=== PATIENT | female | born 1990 | race Caucasian/White ===

== ENCOUNTER 2018-01-11 07:30 | Outpatient (RCR) | payer OTHER, SELFPAY ==
--- NOTE | 2017-12-27 15:56 | PT.OTN ---
Current Diagnoses Unspecified rotator cuff tear or rupture of unspecified shoulder, not specified as traumatic (12/28/17) Transition note: On December 27, 2017 our therapy services consisting of Speech, Occupational, and Physical Therapy transitioned from the [employer] electronic documentation system to a new [employer] electronic documentation system.?? All documentation prior to December 27 can be found under [employer] saved data. From December 27 forward all medical record documentation will be in [employer] 6.1.
--- NOTE | 2017-12-28 08:34 | PT.OTN ---
Current Diagnoses Unspecified rotator cuff tear or rupture of unspecified shoulder, not specified as traumatic (12/28/17) Physical Therapy Treatment Note PT-OP-A Visit Information Start: 12/28/17 08:11 Freq: Status: Active Protocol: Activity Type Activity Date Activity User E-Sign Co-Sign Detail Recorded Client Recorded Date Recorded By Document 12/28/17 08:13 EA [id number] 12/28/17 08:31 EA 12/28/17 08:13 Out-Patient Physical Therapy Visit Information [Visit Information] -Visit Type Treatment Note -Visit Note POC -Total Visit Minutes 57 PT-OP-C Subjective Start: 12/28/17 08:11 Freq: Status: Active Protocol: Activity Type Activity Date Activity User E-Sign Co-Sign Detail Recorded Client Recorded Date Recorded By Document 12/28/17 08:31 EA [id number] 12/28/17 08:33 EA 12/28/17 08:31 OP-PT Subjective [Patient Comments] -Patient Comments Patient reports consistent w/ HEP and personal fitness program . Denies shoulder functional limitation except with full reaching overhead w/ slight difficulty. Patient denies c/o pain at this time. -Patient Reported Progress Improving PT-OP-Q Treatments Start: 12/28/17 08:11 Freq: Status: Active Protocol: Activity Type Activity Date Activity User E-Sign Co-Sign Detail Recorded Client Recorded Date Recorded By Document 12/28/17 08:13 EA [id number] 12/28/17 08:31 EA 12/28/17 08:13 Cardio Equipment [Upper Body Ergometer (UBE)] -Duration (Minutes) 5 -RPM 60 Gym Equipment [Therapeutic Ball] 1 -Exercise Details Prone 2-4 lbs DB shoulder T-Y raises -Ball Size/Color Red -Body Position Prone -Reps/Duration 12 x2 sets Therapeutic Exercises [Prone Exercises] 1 -Prone Exercise Name Girly/ modified shoulder DB plank row -Side bilateral -Resistance 4 lbs -Reps/Minutes 10 x 2 [Sitting Exercises] 2 -Sitting Exercise Name Seated balloon toss with arm steady at 180 degrees and w/ 2-4 lbs wrist wgt -Side left 1 -Sitting Exercise Name Cable pull down /seated row -Side bilateral -Resistance 20-40lbs -Equipment Used Cable machine -Reps/Minutes 12 [Standing Exercises] 4 -Standing Exercise Name BUSO burpees -Side bilateral -Reps/Minutes 5-7 x 2 3 -Standing Exercise Name T-bar shoulder extension -Side bilateral -Resistance 2-4 lbs -Reps/Minutes 12x 2sets -Comments trunk slight bend 2 -Standing Exercise Name BTB D1/D2 flexion -Side bilateral -Equipment Used theraband -Reps/Minutes 12x 2 1 -Standing Exercise Name DB shoulder side raises, front raises, press -Side bilateral -Resistance 2-4 lbs -Reps/Minutes 10-12 reps x 2 PT-OP-R Modalities Start: 12/28/17 08:11 Freq: Status: Active Protocol: Activity Type Activity Date Activity User E-Sign Co-Sign Detail Recorded Client Recorded Date Recorded By Document 12/28/17 08:13 EA [id number] 12/28/17 08:31 EA 12/28/17 08:13 Hot Pack/Cold Pack [Treatment] Cold Pack -Patient Position Supine -Treatment Duration (minutes) 12 -Patient Tolerance Good PT-OP-T Assessment and Plan Start: 12/28/17 08:12 Freq: Status: Active Protocol: Activity Type Activity Date Activity User E-Sign Co-Sign Detail Recorded Client Recorded Date Recorded By Document 12/28/17 08:13 EA [id number] 12/28/17 08:31 EA 12/28/17 08:13 Physical Therapy Assessment [Assessment Summary] -Assessment Patient tolerated treatment with no signs of discomfort, substitution or acute distress during treatment. Slight weakness to shoulder flexion noted, otherwise functional. Patient is progressing very well and good to discharge next visit to fitness program Physical Therapy Plan [Next Visit Focus/Plan] -Next Visit Plan HEP, provide objective measurement and funtional test .
--- NOTE | 2017-12-28 15:22 | PT.OTN ---
Current Diagnoses Unspecified rotator cuff tear or rupture of unspecified shoulder, not specified as traumatic (12/28/17) Physical Therapy Treatment Note PT-OP-A Visit Information Start: 12/28/17 08:11 Freq: Status: Active Protocol: Activity Type Activity Date Activity User E-Sign Co-Sign Detail Recorded Client Recorded Date Recorded By Document 12/28/17 08:13 EA [id number] 12/28/17 08:31 EA 12/28/17 08:13 Out-Patient Physical Therapy Visit Information [Visit Information] -Visit Type Treatment Note -Visit Note POC -Visit Start Time 07:30 -Visit Stop Time 08:22 -Total Visit Minutes 52 PT-OP-C Subjective Start: 12/28/17 08:11 Freq: Status: Active Protocol: Activity Type Activity Date Activity User E-Sign Co-Sign Detail Recorded Client Recorded Date Recorded By Document 12/28/17 08:31 EA [id number] 12/28/17 08:33 EA 12/28/17 08:31 OP-PT Subjective [Patient Comments] -Patient Comments Patient reports consistent w/ HEP and personal fitness program . Denies shoulder functional limitation except with full reaching overhead w/ slight difficulty. Patient denies c/o pain at this time. -Patient Reported Progress Improving PT-OP-Q Treatments Start: 12/28/17 08:11 Freq: Status: Active Protocol: Activity Type Activity Date Activity User E-Sign Co-Sign Detail Recorded Client Recorded Date Recorded By Document 12/28/17 08:13 EA [id number] 12/28/17 08:31 EA 12/28/17 08:13 Cardio Equipment [Upper Body Ergometer (UBE)] -Duration (Minutes) 5 -RPM 60 Gym Equipment [Therapeutic Ball] 1 -Exercise Details Prone 2-4 lbs DB shoulder T-Y raises -Ball Size/Color Red -Body Position Prone -Reps/Duration 12 x2 sets Therapeutic Exercises [Prone Exercises] 1 -Prone Exercise Name Girly/ modified shoulder DB plank row -Side bilateral -Resistance 4 lbs -Reps/Minutes 10 x 2 [Sitting Exercises] 2 -Sitting Exercise Name Seated balloon toss with arm steady at 180 degrees and w/ 2-4 lbs wrist wgt -Side left 1 -Sitting Exercise Name Cable pull down /seated row -Side bilateral -Resistance 20-40lbs -Equipment Used Cable machine -Reps/Minutes 12 [Standing Exercises] 4 -Standing Exercise Name BUSO burpees -Side bilateral -Reps/Minutes 5-7 x 2 3 -Standing Exercise Name T-bar shoulder extension -Side bilateral -Resistance 2-4 lbs -Reps/Minutes 12x 2sets -Comments trunk slight bend 2 -Standing Exercise Name BTB D1/D2 flexion -Side bilateral -Equipment Used theraband -Reps/Minutes 12x 2 1 -Standing Exercise Name DB shoulder side raises, front raises, press -Side bilateral -Resistance 2-4 lbs -Reps/Minutes 10-12 reps x 2 PT-OP-R Modalities Start: 12/28/17 08:11 Freq: Status: Active Protocol: Activity Type Activity Date Activity User E-Sign Co-Sign Detail Recorded Client Recorded Date Recorded By Document 12/28/17 08:13 LEEROY [id number] 12/28/17 08:31 EA 12/28/17 08:13 Hot Pack/Cold Pack [Treatment] Cold Pack -Patient Position Supine -Treatment Duration (minutes) 12 -Patient Tolerance Good PT-OP-T Assessment and Plan Start: 12/28/17 08:12 Freq: Status: Active Protocol: Activity Type Activity Date Activity User E-Sign Co-Sign Detail Recorded Client Recorded Date Recorded By Document 12/28/17 08:13 LEEROY [id number] 12/28/17 08:31 EA 12/28/17 08:13 Physical Therapy Assessment [Assessment Summary] -Assessment Patient tolerated treatment with no signs of discomfort, substitution or acute distress during treatment. Slight weakness to shoulder flexion noted, otherwise functional. Patient is progressing very well and good to discharge next visit to fitness program Physical Therapy Plan [Next Visit Focus/Plan] -Next Visit Plan HEP, provide objective measurement and funtional test .
--- NOTE | 2018-01-11 09:05 | PT.OPDS ---
Current Diagnoses Unspecified rotator cuff tear or rupture of unspecified shoulder, not specified as traumatic (01/11/18) Provider Visit Care Team Role Provider Type Alta Hernandez DO Attending Provider Physician Family Provider Primary Care Provider Specialty: [facility] Address: [address] [place] [address], [id number] Email: [email or web address] Discharge Summary PT-OP-C Subjective Start: 12/28/17 08:11 Freq: Status: Active Protocol: Document 01/11/18 08:57 EA (Rec: 01/11/18 09:04 EA [id number]) OP-PT Subjective Patient Comments Patient Comments Patient reports slight limitation with some movement but not interfered her daily activites using left shoulder; overall she feels that she is improve and okay to discharge at this time. Pt denies pain or discomfort atthis time. Patient Reported Progress Improved Patient Questionnaires Quick Dash- Upper Extremity Quick Dash UE Impairment 0% Impaired (Score 0) PT-OP-K Range of Motion Start: 12/28/17 08:11 Freq: Status: Active Protocol: Document 01/11/18 08:57 EA (Rec: 01/11/18 09:04 EA [id number]) Shoulder Goniometric Range of Motion Shoulder Measured in Degrees Active Shoulder ROM WFL Yes PT-OP-M Strength Start: 12/28/17 08:11 Freq: Status: Active Protocol: Document 01/11/18 08:57 EA (Rec: 01/11/18 09:04 EA [id number]) Shoulder Strength Shoulder Manual Muscle Testing Left Flexion 5 Normal Extension 5 Normal Abduction (C5) 5 Normal Adduction 5 Normal External Rotation 4+ Good+ Internal Rotation 5 Normal Horizontal Abduction 5 Normal Horizontal Adduction 5 Normal PT-OP-T Assessment and Plan Start: 12/28/17 08:12 Freq: Status: Active Protocol: Document 01/11/18 08:57 EA (Rec: 01/11/18 09:04 EA [id number]) Physical Therapy Assessment Assessment Summary Assessment Patient is discharged today due to reaching all patient functional goals and treatment goals. Patient exhibits normal shoulder ROM and normal strength to left shoulder. Physical Therapy Plan Discharge Physical Therapy Discharge Reasons Goals Met
== END 2018-01-17 11:31 ==
LOC: PHYS 07:30
PROVIDERS: Family Provider Family Medicine; PCP Family Medicine; Visit Provider Family Medicine
DX: M75.100 Unspecified rotator cuff tear or rupture of unspecified shoulder, not specified as traumatic (principal)
CPT/HCPCS: 97010; 97110; 97535

== ENCOUNTER → 2019-11-09 11:40 | Outpatient (CLI) | payer OTHER, SELFPAY ==
--- NOTE | 2019-11-09 11:40 | DI.US.S_ITS ---
PROCEDURE: US OB <= 14 WEEKS FETUS INDICATIONS: INITIAL US FOR DATING AND VIABILITY OUTSIDE/PRIOR DATING DATA: Last menstrual period (LMP): 09/15/19. LMP-based estimated date of delivery (EDGAR): 06/21/20. First dating scan (date and location): 11/09/19. Estimated date of delivery (EDGAR) from first dating scan: 06/20/20. TECHNIQUE: Real-time scanning was performed of the fetus and maternal pelvic organs, with image documentation. Endovaginal scanning was also performed to better visualize the fetus and maternal ovaries. COMPARISON: None. FINDINGS: Embryo: [place]-rump length measures 16 mm corresponding to 8 weeks 0 days. Heart rate measures 162 beats per minute. Measurement variability in dating: +/- 4 weeks by LMP, +/- 7 days by mean sac diameter (use before 6 weeks gestation if crown-rump length not able to be measured), +/- 5 days by crown-rump length (up to 8 weeks 6 days gestation), +/- 7 days by crown-rump length (up to 13 weeks 6 days gestation). Maternal organs: Right ovary not visualized. Left corpus luteal cyst. Limited images through the kidneys demonstrate no hydronephrosis. IMPRESSION: 8 week 0 day grayson IUP. Dictated by: Sree Lopez [facility] Interpreted: El Moran MD on 11/09/2019 at 13:16 Approved by: El Moran M.D. on 11/09/2019 at 16:19
[2019-11-09 13:23] LABS: Appearance Urine UA CLEAR; Bilirubin Urine UA NEGATIVE (NEGATIVE); Color Urine UA YELLOW; Glucose Urine UA NEGATIVE (Negative); Ketones Urine UA NEGATIVE (NEGATIVE); Leukocyte Esterase Urine UA NEGATIVE (NEGATIVE); Nitrite Urine UA NEGATIVE (Negative); Occult Blood Urine UA NEGATIVE (Negative); Protein Urine UA NEGATIVE (Negative); Urobilinogen Urine UA 0.2 E.U./dL (0.2)
[2019-11-09 13:24] LABS: pH Urine UA 6.5 (4.5-8.0)
[2019-11-09 13:29] LABS: Add Manual Diff / Slide Review NO; Basophils Absolute Auto 0 /uL (0-100); Basophils Percent Auto 0.3 % (0-2); Eosinophils Absolute Auto 100 /uL (0-450); Eosinophils Percent Auto 0.9 % (2-4); Hematocrit 35.2 % (36-46); Lymphocytes Absolute Auto 1700 /uL (1100-4500); Lymphocytes Percent Auto 26.4 % (25-40); Mean Corpuscular HGB Conc 34.2 % (30-36); Mean Corpuscular Hemoglobin 31.7 PG (26-34); Monocytes Absolute Auto 500 /uL (0-900); Monocytes Percent Auto 7.1 % (3-14); Neutrophils Absolute Auto 4100 /uL (1500-7000); Neutrophils Percent Auto 65.3 % (50-75); Platelet Count 246 X10^3/uL (150-400); Red Blood Cell Count 3.79 X10^6/uL (4.0-5.2); White Blood Cell Count 6.3 X10^3/uL (4.5-11.0)
[2019-11-09 15:06] LABS: Hepatitis B Surface Antigen NEGATIVE s/c (NEGATIVE); Rubella Antibody IgG 7.8 IU/mL (>15)
[2019-11-09 15:23] LABS: HIV 1 & 2 Ab/Ag 4th Gen Combo NEGATIVE (NEGATIVE); Hep C Virus Ab w/Reflex Quant NEGATIVE s/c (NEGATIVE)
[2019-11-10 08:09] LABS: RPR Screen Non Reactive (Non Reactive); Varicella IgG Antibody 1298 index (Immune >165)
== END ==
PROVIDERS: Family Provider Family Medicine; PCP Family Medicine; Referring Provider Family Medicine; Visit Provider Family Medicine
DX: Z34.81 Encounter for supervision of other normal pregnancy, first trimester (principal); Z3A.08 8 weeks gestation of pregnancy
CPT/HCPCS: 36415; 76801; 80055; 81003; 86787; 86803; 86850; 86900; 86901; 87086; 87389

== ENCOUNTER → 2020-01-10 10:04 | Outpatient (CLI) | payer OTHER, SELFPAY ==
[2020-01-14 20:44] LABS: AFP, Serum 39.2 ng/mL (.); Calc Gestational Age EDD (.); Estriol, Free 1.19 ng/mL (.); Inhibin A, Dimeric 158.16 pg/mL (.); Inhibin A, MoM 0.89 (.); Maternal Ethnicity Caucasian (.); Maternal Weight 134 lbs (.); Number of Fetuses No (.); OSBR Risk 1 IN 10000 (.); Results Report (.); Test Results *Screen Negative* (.); hCG, MoM 1.13 (.); hCG, Serum 44159 mIU/mL (.)
== END ==
PROVIDERS: Family Provider Family Medicine; PCP Family Medicine; Referring Provider Family Medicine; Visit Provider Family Medicine
DX: Z34.90 Encounter for supervision of normal pregnancy, unspecified, unspecified trimester (principal); Z3A.16 16 weeks gestation of pregnancy
CPT/HCPCS: 36415; 82105; 82677; 84702; 86336

== ENCOUNTER → 2020-02-01 07:45 | Outpatient (CLI) | payer OTHER, SELFPAY ==
--- NOTE | 2020-02-01 07:46 | DI.US.S_ITS ---
PROCEDURE: US OB >= 14 WEEKS FETUS INDICATIONS: ANATOMY SCREENING OUTSIDE/PRIOR DATING DATA: Last menstrual period (LMP): 09/15/19. LMP-based estimated date of delivery (EDGAR): 06/21/20. First dating scan (date and location): 11/09/19. Estimated date of delivery (EDGAR) from first dating scan: 06/20/20.. TECHNIQUE: Real-time scanning was performed of the fetus, with image documentation and biometric measurements. Endovaginal scanning: No COMPARISON: [facility], OB <= 14 WEEKS FETUS, 11/09/2019, 11:50. FINDINGS: General: A single living intrauterine gestation is present. Presentation: Breech. Placenta: Placental position is anterior, without previa. Amniotic fluid index: 9.8 cm, normal range is 5-24 cm. heart rate: 131 beats per minute. Maternal cervical canal: 4.8 cm long. Normal lower limit is 2.5 cm. biometrics: Biparietal diameter: 19 weeks 4 days Head circumference: 19 weeks 5 days Abdominal circumference: 20 weeks Femur length: 20 weeks 2 days Estimated gestational age from initial scan: 20 weeks 0 days Composite gestational age from present scan: 20 weeks 0 days Estimated weight and percentile: 331 g; 50th percentile Measurement variability for biometric dating: +/- 7 days from 14 weeks to 15 weeks 6 days gestation, +/- 10 days from 16 weeks to 21 weeks 6 days gestation, +/- 2 weeks from 22 weeks to 27 weeks 6 days gestation, +/- 3 weeks for 28 weeks gestation or later. weight reference: 4500 g or EFW >90/95% is considered macrosomia or large for gestational age. EFW <10% is small for gestational age. EFW 5% or less is considered intra-uterine growth restriction. Anatomic survey: Neuro: Ventricles are non-dilated at less than 10 mm. Cisterna magna is normal at 3-11 mm. Cerebellum is normal in size and morphology. Nuchal skin fold: Normal at less than 6 mm between 14-21 weeks gestational age. Face: Nose and lips, facial profile are normal. Spine: No evidence for spina bifida. Heart: 4-chambered heart is present, with normal ventricular outflow tracts. Choroid plexus cysts. Diaphragm: Diaphragm is intact. Stomach: Left-sided stomach is present. Kidneys: No hydronephrosis. Normal is less than 5 mm in 2nd trimester, less than 7 mm in 3rd trimester. Cord: 3-vessel cord has orthotopic insertion. Bladder: Normal in size. Extremities: All 4 extremities identified. IMPRESSION: 1. Single living IUP redemonstrated and interval growth is normal. 2. Small choroid plexus cysts present: in isolation, no association with aneuploidy. Anatomic survey otherwise is normal. Dictated by: Sree Lopez [facility] Interpreted: Kelly Mckeon MD on 02/01/2020 at 10:09 Approved by: Kelly Mckeon M.D. on 02/01/2020 at 18:18
== END ==
PROVIDERS: Family Provider Family Medicine; PCP Family Medicine; Referring Provider Family Medicine; Visit Provider Family Medicine
DX: Z36.89 Encounter for other specified antenatal screening (principal); Z3A.20 20 weeks gestation of pregnancy
CPT/HCPCS: 76811

== ENCOUNTER → 2020-02-07 10:00 | Outpatient (CLI) | payer OTHER, SELFPAY ==
[2020-02-07 14:19] LABS: Urine N gonorrhoeae NOT DETECTED
[2020-02-07 14:28] LABS: Urine Chlamydia NOT DETECTED
== END ==
PROVIDERS: Family Provider Family Medicine; PCP Family Medicine; Visit Provider Family Medicine
DX: Z34.90 Encounter for supervision of normal pregnancy, unspecified, unspecified trimester (principal); Z11.3 Encounter for screening for infections with a predominantly sexual mode of transmission; Z11.8 Encounter for screening for other infectious and parasitic diseases; Z3A.20 20 weeks gestation of pregnancy
CPT/HCPCS: 87491; 87591

== ENCOUNTER → 2020-03-27 08:29 | Outpatient (CLI) | payer OTHER, SELFPAY ==
[2020-03-27 10:11] LABS: Hemoglobin 11.1 g/dL (12.0-16.0)
[2020-03-27 10:28] LABS: GTT (PREG) 1 Hour PP 50gm Dose 154 mg/dL (76-139)
== END ==
PROVIDERS: Family Provider Family Medicine; PCP Family Medicine; Referring Provider Family Medicine; Visit Provider Family Medicine
DX: Z34.90 Encounter for supervision of normal pregnancy, unspecified, unspecified trimester (principal); Z3A.26 26 weeks gestation of pregnancy
CPT/HCPCS: 36415; 82950; 85014; 85018

== ENCOUNTER → 2020-03-31 07:48 | Outpatient (CLI) | payer OTHER, SELFPAY ==
[2020-03-31 10:46] LABS: Glucose 1 Hour Gest 113 mg/dL (76-180)
[2020-03-31 11:43] LABS: Glucose Tol Interp,Gestational INTERPRETATION
[2020-03-31 11:51] LABS: Glucose 2 Hour Gest 126 mg/dL (76-155)
[2020-03-31 12:52] LABS: Glucose 3 Hour Gest 107 mg/dL (76-140)
[2020-03-31 20:47] LABS: Glucose Fasting Gestational 74 mg/dL (76-95)
== END ==
PROVIDERS: Family Provider Family Medicine; PCP Family Medicine; Referring Provider Family Medicine; Visit Provider Family Medicine
DX: R73.09 Other abnormal glucose (principal); Z34.90 Encounter for supervision of normal pregnancy, unspecified, unspecified trimester
CPT/HCPCS: 36415; 82951; 82952

== ENCOUNTER → 2020-05-29 09:49 | Outpatient (CLI) | payer OTHER, SELFPAY ==
[2020-05-30 14:49] LABS: Strep Grp B PCR POS for Grp B Strep
== END ==
PROVIDERS: Family Provider Family Medicine; PCP Family Medicine; Visit Provider Family Medicine
DX: Z34.90 Encounter for supervision of normal pregnancy, unspecified, unspecified trimester (principal); Z3A.36 36 weeks gestation of pregnancy
CPT/HCPCS: 87653

== ENCOUNTER 2020-06-21 22:51 | Inpatient (IN) | payer OTHER, SELFPAY ==
--- NOTE | 2020-06-21 23:51 | P.HPOB_ITS ---
OB HPI Date/Time Date of admission: 06/21/20 Date Patient Seen: 06/21/20 Time Patient Seen: 23:30 History of Present Condition Chief complaint: eval of labor : 2 Para: 1 Estimated Date of Delivery: 06/21/20 Estimated Gestational Age (weeks): 40 Narrative: Alejandra Valenzuela is a 30 year old P1 at 40 weeks gestation in active labor. Patient had been having mild contractions at home an hour prior to arrival which increased in frequency to every 8 minutes. Upon arrival to the center she was found to be 8 cm delivered shortly thereafter at 11:25 p.m.. has been uncomplicated with good care. History of Present care: good care, initiated at week # (8), number of visits (13) and pounds weight gain (29) Dating criteria: based on 1st trimester US only (Confirmed conception date) Ultrasounds: normal mid trimester US Obstetrical complications: none Medical complications: none Preadmission Labs Blood type: A (+) positive -: Antibody screen: negative, GBS status: negative, HBsAG: negative, HIV: negative and RPR/VDLR: negative -: Gonorrhea screen: not detected -: Rubella: not immune and Varicella: immune HCT: 32 HCAB: negative Quad screen: Normal Urine: Negative 1 hr GTT: 154 3 hr GTT: 1 hr (113), 2 hr (126) and 3 hr (107) Fasting blood glucose: 74 Prior (ies) History: 12/23/16 41 weeks, epidural, 15 hour labor, 7 lb 1 oz female, breast-fed 12+ months. [facility] Medical History Eczema of both upper extremities (Acute) (spontaneous vaginal delivery) (Acute ~12/23/16) Surgical History History of third molar tooth extraction (~2004) Family History Grandfather Mental health problem Grandmother Mental health problem Father Stroke Social History marital status: number of children: 1 household members: spouse and children pets and animals: Yes (Dog X1) education level: college occupational status: unemployed current occupational exposures/hazards: No calvin/zoroastrian: Nondenominational special calvin needs: No Smoking Status: Never smoker second hand exposure: No alcohol intake: former (pre- : occasional/social ) substance use type: does not use Meds Home Medications and Allergies Home Medications Medication Instructions Recorded Confirmed Type prenat.vits,gayathri,epl-aszo-dmqmq 1 tab PO DAILY 11/07/19 05/29/20 History breast pump #1 each 04/03/20 05/29/20 Rx Allergies Allergy/AdvReac Type Severity Reaction Status Date / Time avocado AdvReac Intermediate GI issues Verified 04/17/20 10:03 Review of Systems Review of Systems ROS: Yes All systems reviewed with the patient and are negative except as otherwise documented Exam Narrative Exam Narrative: General: Resting in bed holding infant, appears mildly distressed but good color and respiratory effort. Holding vigorous on her chest. Assessment and Plan Assessment and Plan Assessment and Plan narrative: 30-year-old now 2. Patient arrived at the center and subsequently delivered precipitously with RNs in attendance. See delivery note. Patient is GBS positive and did not receive prophylactic antibiotics due to lack of time.
[2020-06-21] MEDS: fentaNYL 100 MCG/2 ML INJ (23:56)
--- NOTE | 2020-06-22 00:05 | PM.OBPRVD ---
Labor & Delivery Delivery date: 06/22/20 Intrapartal events: Precipitous Labor < 3 hours Delivery monitor: none Route of delivery: L&D Laceration Description: Labial (Right superficial tear) Estimated blood loss (mL): 100 Anesthesia type: None Narrative: VAGINAL DELIVERY NOTE Date 06/22/20 BRIEF HISTORY: Patient is a 30-year-old at 40 weeks who gave on 06/21/20 at 23:25. EDGAR: 06/21/20 Hospital problems: 40 weeks of GBS positive Precipitous delivery Patient arrived in active labor and was found to be 8 cm. She had been having mild contractions at home in the hour prior that increased significantly after arrival in the center. Spontaneous rupture of membranes occurred at 11:15 p.m. with clear fluid. Patient progressed rapidly and went on to deliver a vigorous female at 11:25 p.m. with center RNs in attendance. I arrived minutes after delivery to infant resting on mother's chest. Cord was clamped and cut after several minute delay. Apgars were 9 and 9. No resuscitation of the required. Placenta delivered at 11:34 p.m. after active management and appeared intact with a three-vessel cord. 10 units of Pitocin given after delivery of placenta. Fundus was firm at umbilicus. There was a small superficial right labial laceration which was not repaired. No other lacerations. She does have a thrombosed hemorrhoid which she declined lancing tonight but would like addressed tomorrow. EBL: 100 mL. Needle and sponge counts were correct. The vagina was inspected and no items were left in situ. Patient was doing well with Michelle, her and at bedside. Baby 1: gender: Female Presentation: vertex Placenta delivery description: Spontaneous cord vessel description: 3 Vessels score (1 min): 9 score (5 min): 9
[2020-06-22 00:06] LABS: Add Manual Diff / Slide Review NO; Basophils Absolute Auto 0 /uL (0-100); Basophils Percent Auto 0.3 % (0-2); Eosinophils Absolute Auto 0 /uL (0-450); Eosinophils Percent Auto 0.5 % (2-4); Hemoglobin 12.5 g/dL (12.0-16.0); Lymphocytes Absolute Auto 2900 /uL (1100-4500); Lymphocytes Percent Auto 28.8 % (25-40); Mean Corpuscular HGB Conc 34.9 % (30-36); Mean Corpuscular Volume 94.6 fL (80-100); Monocytes Absolute Auto 900 /uL (0-900); Monocytes Percent Auto 8.6 % (3-14); Neutrophils Absolute Auto 6200 /uL (1500-7000); Neutrophils Percent Auto 61.8 % (50-75); Platelet Count 199 X10^3/uL (150-400); Red Blood Cell Count 3.81 X10^6/uL (4.0-5.2); Red Cell Distribution Width 12.3 % (11.6-14.8)
[2020-06-22 01:04] VITALS: BP 135/70
[2020-06-22 01:24] LABS: COVID19 -Nasal RAPID Negative (Negative)
[2020-06-22] MEDS: IBUPROFEN 600 MG TABLET PO ×2 (02:07→08:17)
[2020-06-22] MEDS: DERMOPLAST SPRAY 20% 60 ML 1 SPRAY TOP (02:10)
[2020-06-22] MEDS: LANOLIN OINT 7 GM 1 APPLIC TOP (02:10)
[2020-06-22] MEDS: DOCUSATE 100 MG CAPSULE PO (08:17)
--- NOTE | 2020-06-22 10:19 | P.PNOB_ITS ---
Subjective - OB Subjective Patient comments: no complaints [place] baby status: doing well [place] feeding status: exclusively breast feeding Date Patient Seen: 06/22/20 Time Patient Seen: 09:30 Interval history: Patient has no complaints or concerns this morning. Minimal pain which is controlled with ibuprofen. Vaginal bleeding is moderate as expected. [place] is doing well. Her hemorrhoid is not bothering her this morning so she would prefer not to intervene. Exam Vital Signs (past 8 hours): Temperature 99.0? blood pressure 102/66 heart rate 58 respirations 15 General: Awake and alert, no acute distress. HEENT: NCAT, EOMI, moist oral mucosa CV: Regular rate and rhythm, no murmurs, rubs or gallops Lungs: CTAB, no wheezes, rales, or rhonchi Abdomen: Soft, nontender; bowel tones active; uterus firm 2 cm below umbilicus Extremities: Warm, no edema Objective Labs Result Diagrams: 06/21/20 23:20 Labs: Laboratory Results - last 24 hr 06/21/20 06/21/20 06/21/20 23:00 23:20 23:20 WBC 10.0 RBC 3.81 L Hgb 12.5 Hct 36.0 MCV 94.6 MCH 33.0 MCHC 34.9 RDW 12.3 Plt Count 199 Neut % (Auto) 61.8 Lymph % (Auto) 28.8 [place] % (Auto) 8.6 Eos % (Auto) 0.5 L Baso % (Auto) 0.3 Neut # (Auto) 6200 Lymph # (Auto) 2900 [place] # (Auto) 900 Eos # (Auto) 0 Baso # (Auto) 0 COVID-19 PCR Negative Blood Type A Positive Antibody Screen Negative Assessment & Plan Assessment and Plan (1) Spontaneous vaginal delivery: Status: Acute Plan day: 1 plan OB: routine care Comments: Doing well . Anticipate discharge home tomorrow. Time Spent With Patient Time: Total time spent is greater than 50% in coordination of care (as documented) at patient's floor/unit and/or counseling patient: Time with patient: less than 15 minutes
[2020-06-23] MEDS: IBUPROFEN 600 MG TABLET PO (04:12)
--- NOTE | 2020-06-23 06:25 | P.DS_ITS ---
Discharge Providers Provider Date of admission: 06/21/20 22:51 Discharge Date: 06/23/20 Primary care physician: Crista Gama DO Consults: 06/22/20 23:50 Consult to Cardiac Monitor Routine Comment: Discharge provider: Crista Gama DO Summary Hospital Course Date Patient Seen: 06/23/20 Procedures: Spontaneous vaginal delivery Hospital Course: Patient is a 30-year-old G2 now P2 after uncomplicated precipitous vaginal delivery at 40 weeks gestation on 06/21/20. She was GBS positive but did not time for antibiotic prophylaxis. She arrived to labor and delivery at 8 cm then rapidly progressed after spontaneous rupture membranes to deliver a vigorous female . There was a small superficial right labial laceration which was not repaired. Patient was also found to have a thrombosed hemorrhoid and was offered lancing which she declined. course was uncomplicated. She denied pain from the hemorrhoid in wished to manage conserv atively. Vaginal bleeding was moderate. Pain controlled with ibuprofen. She was ambulating, voiding and passing flatus. Breast-feeding going well and no issues in the . Counseled patient to call for fevers, severe pain or bleeding through more than a pad an hour. She will follow up in clinic in 6 weeks. Peripartum Data Delivery Method: Natural Vaginal Laceration Description: Labial (Superficial right labial which was not repaired) complications: none [place] 1: Gender: Female Discharge Diagnosis (1) Spontaneous vaginal delivery: Status: Acute (2) 40 weeks gestation of : Status: Acute Time Spent with Patient Time attestation: Total time spent providing and/or coordinating discharge services: Objective Labs Result Diagrams: 06/21/20 23:20 Exam Vital Signs (past 8 hours): Temperature 97.7? heart rate 54 respirations 16 General: Awake and alert, no acute distress. HEENT: NCAT, EOMI, moist oral mucosa CV: Regular rate and rhythm, no murmurs, rubs or gallops Lungs: CTAB, no wheezes, rales, or rhonchi Abdomen: Soft, nontender; bowel tones active; uterus firm 2 cm below umbilicus Extremities: Warm, no edema Discharge Plan Discharge Plan Patient Disposition: Home Discharge orders & Medications Prescriptions: New acetaminophen 325 mg Tablet 650 mg PO Q6HR PRN (Reason: Pain, Mild (1-3)) Qty: 30 RF: 0 Dermoplast (with menthol) 20-0.5 % Aerosol 1 spray topical Q1HR PRN (Reason: perineal pain) Qty: 1 RF: 0 docusate sodium [DOK] 100 mg Capsule 100 mg PO DAILY Qty: 30 RF: 0 ibuprofen 600 mg Tablet 600 mg PO Q6HR PRN (Reason: Pain, Mild (1-3)) Qty: 30 RF: 0 Dhy-T-Oxwnib Cream 1 applic topical PRN PRN (Reason: Tenderness) Qty: 1 RF: 0 Continued (DME) breast pump Device See Rx Instructions .ROUTE .MEDSUPPLY Qty: 1 RF: 0 prenat.vits,gayathri,vzo-kqxo-rfzig Tablet 1 tab PO DAILY RF: 0 Follow up/Referrals: Crista Gama DO [Primary Care Provider] - 6 Weeks Diet/Activity/Treatments Diet: Diet as Tolerated Skin/Wound/Dressing Care Report to your healthcare provider any signs of infection, such as:: chills, fever, night sweats, increased pain, unusual drainage and unusual redness Visit Report/Discharge Packet Visit Report Forms: Patient Portal/API, Stroke Signs & Symptoms Discharge Data Primary Care Provider: Crista Gama
[2020-06-23] MEDS: MEASLES,MUMPS,RUBELLA VACC/PF 0.5 ML VIAL SUBCUT (08:04)
[2020-06-23] MEDS: DOCUSATE 100 MG CAPSULE PO (08:04)
[2020-06-23 11:57] VITALS: BP 135/70
== END 2020-06-23 11:20 | disposition home or self-care (01) | DRG 807 ==
PROVIDERS: Admitting Provider Family Medicine; Family Provider Family Medicine; PCP Family Medicine; Referring Provider Family Medicine; Visit Provider Family Medicine
DX: O99.824 Streptococcus B carrier state complicating childbirth (principal); Z37.0 Single live birth; O62.3 Precipitate labor; O70.0 First degree perineal laceration during delivery; Z3A.40 40 weeks gestation of pregnancy
CPT/HCPCS: 59400; 85025; 86850; 86900; 86901; 87635; G0379; J3010

== ENCOUNTER → 2020-09-08 16:37 | Outpatient (CLI) | payer OTHER, SELFPAY ==
--- NOTE | 2020-09-08 16:39 | DI.RAD.S_ITS ---
PROCEDURE: XR FOOT LT MIN 3V INDICATIONS: left great toe pain TECHNIQUE: 3 views of the foot were acquired. COMPARISON: None. FINDINGS: Mild hallux valgus metatarsus prima varus alignment and medial bunion. Bones: No fractures or dislocations. No suspicious bony lesions. Bony excrescence involving the lateral aspect of the 1st metatarsal head Soft tissues: No tibiotalar joint effusion. Achilles tendon appears normal. IMPRESSION: Mild hallux valgus alignment and medial bunion. 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 Dictated by: Sree Lopez [facility] Interpreted: El Moran MD on 09/08/2020 at 17:06 Approved by: El Moran M.D. on 09/08/2020 at 17:33
== END ==
PROVIDERS: Family Provider Family Medicine; PCP Family Medicine; Referring Provider Family Medicine; Visit Provider Family Medicine
DX: M79.675 Pain in left toe(s) (principal); M20.12 Hallux valgus (acquired), left foot; M21.612 Bunion of left foot
CPT/HCPCS: 73630